=== PATIENT | male | born 1965 | race African-American/Black ===

== ENCOUNTER 2017-04-19 12:35 | Emergency (ER) | payer OTHER ==
[~2017-04-19] VITALS: Ht 167.6 cm; Wt 74.8 kg
== END 2017-04-19 16:51 | disposition home or self-care (01) ==
LOC: ED 12:35
PROC: 0JCJ0ZZ Extirpation of Matter from Right Hand Subcutaneous Tissue and Fascia, Open Approach (ICD-10-PCS; principal; 2017-04-19)
DX: S61.220A Laceration with foreign body of right index finger without damage to nail, initial encounter (principal); W45.0XXA Nail entering through skin, initial encounter; Y92.69 Other specified industrial and construction area as the place of occurrence of the external cause
CPT/HCPCS: 90471; 90715; 96372; 99283; J1170; J1885